=== PATIENT | male | born 1950 | race Caucasian/White ===

== ENCOUNTER 2016-05-28 06:56 | Day surgery (SDC) | payer MEDICARE ==
--- NOTE | 2016-05-18 11:22 | MH ---
cc: RENETTA MEDRANO M.D., ARJUN D. MD DATE OF ADMISSION 05/28/2016 CHIEF COMPLAINT The patient will come for CT-guided lung biopsy of the left apex. HISTORY OF PRESENT ILLNESS Mr. Fu is a pleasant 65-year-old male with a history of coronary disease status post CABG, history of CVA and pneumonia. He had a CT scan of the chest done which shows a spiculated density measuring 15 mm in the left lung apex. He also has a nodular dense in the left lower lobe measuring 20 mm and right middle lobe measuring 26 mm. He had a PFT done which showed mild obstructive lung disease. He had a PET scan done which shows a left upper lobe nodule that is suspicious for underlying malignancy, right lung base consolidation is suspicious for pneumonia. Previously seen right upper lobe infiltrate has resolved. He has parenchymal density with mild to moderate uptake most likely inflammatory in nature at the lung bases. PAST MEDICAL HISTORY 1. Coronary artery disease status post CABG. 2. 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 Arthroscopy 4. History of CAD MEDICATIONS He is takin. Plavix 75 mg a day 2. Lasix 20 mg a day 3. Lipitor 10 mg a day 4. Tramadol as needed 5. Coreg 3.121 mg a day 6. Maalox as needed 7. Amiodarone 200 mg a day ALLERGIES NO KNOWN DRUG ALLERGIES. SOCIAL HISTORY He has a history of smoking 50 years one pack a day which he quit recently. He has a history of alcohol use which he quit two months ago. No drug use. 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 FAMILY HISTORY He is for 46 years. He has three children, one at age 2-1/2-years-old. He has two brothers both of them have heart problems. Both parents with heart disease REVIEW OF SYSTEMS He has lost weight. He complains of fatigue. He has shortness of breath. No chest pain, hemoptysis, DVT or pulmonary embolism. PHYSICAL EXAMINATION This is an elderly male, anxious, not in any acute distress. VITAL SIGNS: Blood pressure 118/65, heart rate 82, respiration 16, weight 148, oxygen saturation 95%. HEENT: Examination pupils are equal and reactive to light. He has no eye sight in the left eye. NECK: Supple. JVP not raised. CHEST: Equal bilaterally. He has a few rhonchi. CARDIOVASCULAR: S1 and S2 normal. ABDOMEN: Benign. EXTREMITIES: No edema. IMPRESSION 1. Left apex apical nodule positive on PET scan concerning for malignancy. 2. He has basilar densities which are suggestive of an inflammatory process. 3. COPD 4. Coronary artery disease status post stent and CABG 5. 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 6. PAD PLAN I discussed with the patient and his left apex density is suspicious for malignancy. He will need a CT-guided biopsy. I explained the procedure and the complications including complication of anesthesia, pneumothorax requiring chest tube, bleeding complication, injury to the blood vessels, lungs, nose, arrhythmia, hypoxia and also the possibility of nondiagnostic lung biopsy. He will have to stay off Plavix for five days and he does understand that he will be at increased risk of thromboembolic events and IA when he is off Plavix. He understands well and wants to proceed with it. He will be scheduled for a CT-guided biopsy at [facility]. Follow up in three weeks. MD ROBERTO Moyer/JAVID /10:37 PM /11:20 AM
[~2016-05-28] VITALS: Ht 182.9 cm; Wt 68.2 kg
[2016-05-28] VITALS (8 sets, daily range): BP systolic 150–193; BP diastolic 54–75; PULSE 51–82; RESP 18–20; TEMP 97.9; O2SAT 95–98
[~2016-05-28 06:56] MED LIST: ATOR40TA16 PO; CARV6.25 PO; FURO1TAB62 PO; LEVA750T PO; MEDICAL COMPRES1 MIS; PACE200T4 PO; PANT20 PO; PLAV75TA29 PO
[2016-05-28] MEDS ORDERED: CARV3.12 PO (07:18)
[2016-05-28] MEDS ORDERED: LISI2.5T3 PO (07:18)
[2016-05-28] MEDS ORDERED: AMIO200T PO (07:18)
[2016-05-28] MEDS ORDERED: MAG OXIDE PO (07:18)
[2016-05-28] MEDS ORDERED: SODIUM BICARBONATE 8.4% INJ 50 ML ONE (07:34)
[2016-05-28] MEDS ORDERED: LIDOCAINE 1%/EPINEPHrine 1:100,000 SOLN 20 ML VIAL ONE (07:34)
[2016-05-28 07:40] LABS: AUTOMATED NEUTROPHIL # 2.2 TH/MM3 (1.8-7.7); BASOPHIL % 0.9 % (0.0-2.0); EOSINOPHIL # 0.2 TH/MM3 (0-0.4); EOSINOPHIL % 3.6 % (0.0-4.0); HEMATOCRIT 43.3 % (39.0-51.0); HEMO FLAGS DIFF FINAL; LYMPH % 28.4 % (9.0-44.0); LYMPHOCYTE # 1.4 TH/MM3 (1.0-4.8); MEAN CELL VOLUME 99.1 FL (80.0-100.0); MEAN CORPUSCULAR HEMOGLOBIN 33.7 PG (27.0-34.0); MONO % 21.4 % (0.0-8.0); NEUT % 45.7 % (16.0-70.0); PLATELET COUNT 195 TH/MM3 (150-450); RED BLOOD COUNT 4.37 MIL/MM3 (4.50-5.90); RED CELL DISTRIBUTION WIDTH 14.6 % (11.6-17.2); WHITE BLOOD COUNT 4.8 TH/MM3 (4.0-11.0)
[2016-05-28 07:46] LABS: APTT (PATIENT) 29.4 SEC (24.3-30.1); PROTHROMBIN TIME - PATIENT 10.9 SEC (9.8-11.6)
[2016-05-28] MEDS ORDERED: SODIUM CHLOR 0.9% 1000 ML IV SCH (08:45)
[2016-05-28] MEDS ORDERED: fentaNYL CITRATE 250 MCG/5 ML AMP ONE (09:40)
[2016-05-28] MEDS ORDERED: MIDAZOLAM HCL 5 MG/5 ML VIAL ONE (09:40)
[2016-05-28] MEDS ORDERED: oxyCODONE/ACETAMINOPHEN 5 MG/325 MG TAB PO PRN (11:00)
--- NOTE | 2016-05-28 13:53 | RADRPT ---
EXAM DATE/TIME: 05/28/2016 13:20 [facility] COMPARISON: CT PULMONARY ANGIOGRAM, February 26, 2016, 17:47. CHEST SINGLE AP, February 26, 2016, 16:34. INDICATIONS : Post left side biopsy MEDICAL HISTORY : Congestive heart failure. Chronic obstructive pulmonary disease. SURGICAL HISTORY : CABG. ENCOUNTER: Initial ACUITY: 1 day PAIN SCORE: 3/10 LOCATION: Bilateral chest FINDINGS: The heart is enlarged. The patient is post median sternotomy. There are COPD changes with areas of in filtrate involving the right upper lobe, right lower lobe and to a lesser extent the left lung base. There are chronic interstitial changes. Note is made of a small masslike density in the left lung ape x and biapical pleural thickening. There is a small pneumothorax in the left lung apex. These changes are stable compared to the exam of 05/27/16. CONCLUSION: 1. Small left apical pneumothorax. Followup examination in 2-3 hours to assess for stability would be warranted. Tj Brown MD on May 28, 2016 at 13:49 Board Certified Radiologist. This report was verified electronically.
[2016-05-28] MEDS ORDERED: THROMBIN (TOPICAL) 5,000 UNIT VIAL ONE (15:42)
--- NOTE | 2016-05-29 07:57 | RADRPT ---
EXAM DATE/TIME: 05/28/2016 09:51 [facility] COMPARISON: No previous studies available for comparison. INDICATIONS : Left lung mass. SEDATION TIME: 30 minutes BIOPSY SITE: Left lung MEDICATION(S): 1.) 2 mg midazolam (Versed) IV 2.) 150 mcg fentanyl (Sublimaze) IV DEVICE(S): 1.) 18 gauge Jones blunt needle 10cm 2.) 20 gauge Temno core biopsy needle 15cm MEDICAL HISTORY : Cardiovascular disease. SURGICAL HISTORY : CABG ENCOUNTER: Initial ACUITY: 1 day PAIN SCORE: 0/10 LOCATION: Left chest A total of four core specimen(s) were obtained and sent to the laboratory for pathologic evaluation. PROCEDURE: 1. CT guided lung biopsy. 2. Conscious sedation with continuous EKG and oximetry monitoring. I had previously discussed the risk of previous lung biopsy with Mr. Fu. He understands the risks involved and asked to proceed. . The site was prepped in a sterile fashion. Full sterile technique was used, including cap, mask, cordelia rile gloves and gown and a large sterile sheet. Hand hygiene and 2% chlorhexidine and/or betadine/al cohol prep was utilized per protocol for cutaneous antisepsis. The skin and subcutaneous tissues wer e infiltrated with local anesthetic solution. Under CT guidance an 18 gauge blunt needle was placed in oblique fashion approach to the PET positive area. 4 cores were obtained. Material was submitted for pathology and culture. Follow-up CT scan reveals no pneumothorax. Conscious sedation was performed with the prescribed dosages and duration as above. The patient paul ated the procedure well and there were no complications. EKG and oximetry remained stable throughout the procedure. The patient was sent to Radiology Outpatient Unit in stable condition. CONCLUSION: Uncomplicated CT guided biopsy. Pathology and culture are pending Melvin Brown MD FACR on May 29, 2016 at 7:53 Board Certified Radiologist. This report was verified electronically.
--- NOTE | 2016-05-29 13:12 | RADRPT ---
EXAM DATE/TIME: 05/28/2016 15:26 [facility] COMPARISON: CHEST EXPIRATION ONLY, May 28, 2016, 13:20. INDICATIONS: Post Lung Biopsy MEDICAL HISTORY: Stroke. CABG, CHF SURGICAL HISTORY: CABG. Left Lung Biopsy ENCOUNTER: Initial ACUITY: 1 day PAIN SCORE: 0/10 LOCATION: Bilateral chest FINDINGS: Pneumothorax is again seen in the apex of the right lung. This measures 1.4 cm. This has decreased in size from the comparison study. Comparison study this measured 2 cm. Heart remains enlarged. Mild interstitial edema remain. CONCLUSION: Minimal decrease in the size of the pneumothorax. I will send Mr. Fu home for follow-up chest x-ray in the a.m. Currently he is asymptomatic. Melvin Brown MD FACR on May 29, 2016 at 13:07 Board Certified Radiologist. This report was verified electronically.
[2016-05-30] MEDS ORDERED: MAGN400T2 PO (09:11)
[2016-10-29] MEDS ORDERED: PLAV75TA29 PO (10:17)
== END 2016-05-28 16:15 | disposition home or self-care (01) ==
LOC: HRAD 06:56 → HRIP 06:57 → EDSTATUS 07:00 → HRAD 16:15
PROVIDERS: ATTEND Specialist
DX: R91.1 Solitary pulmonary nodule (principal); J44.9 Chronic obstructive pulmonary disease, unspecified; I25.10 Atherosclerotic heart disease of native coronary artery without angina pectoris; Z95.1 Presence of aortocoronary bypass graft; Z95.5 Presence of coronary angioplasty implant and graft; Z86.73 Personal history of transient ischemic attack (TIA), and cerebral infarction without residual deficits; Z87.891 Personal history of nicotine dependence
CPT/HCPCS: 32405; 71010; 77012; 85025; 85610; 85730; 87015; 87070; 87102; 87116; 87176; 87205; 87206; 88305; 88333; 88341; J2250; J3010; J7030; 88342

== ENCOUNTER → 2016-05-29 | Outpatient (CLI) | payer MEDICARE ==
[~2016-05-29] MED LIST changes: +AMIO200T PO; +CARV3.12 PO; -CARV6.25 PO; -LEVA750T PO; +LISI2.5T3 PO; +MAG OXIDE PO; +MAGN400T2 PO; -PANT20 PO
--- NOTE | 2016-05-29 09:50 | RADRPT ---
EXAM DATE/TIME: 05/29/2016 08:45 [facility] COMPARISON: CHEST SINGLE AP, February 26, 2016, 16:34. INDICATIONS: Pneumothorax. MEDICAL HISTORY: Congestive heart failure. Chronic obstructive pulmonary disease SURGICAL HISTORY: CABG. ENCOUNTER: Subsequent ACUITY: 2 days PAIN SCORE: 0/10 LOCATION: Left chest FINDINGS: There is a small pneumothorax persisting on the left measuring 1.3 cm. Minimal blunting of the right costophrenic sulcus is noted. Heart and pulmonary vascularity are normal. CONCLUSION: Resolving pneumothorax. Patient is clinically stable. Instructions to call was given. Pathology is pending. Melvin Brown MD FACR on May 29, 2016 at 9:26 Board Certified Radiologist. This report was verified electronically.
== END ==
LOC: HRAD 08:30
PROVIDERS: ATTEND Radiology Body Imaging
DX: J93.9 Pneumothorax, unspecified (principal)
CPT/HCPCS: 71010